=== PATIENT | female | born 1975 ===

== ENCOUNTER 2021-06-13 05:37 | Outpatient (REF) | payer OTHER, MEDICAID, SELFPAY ==
--- NOTE | ~2021-06-13 | XR_ITS ---
EXAMINATION: XR ANKLE, LEFT CLINICAL INFORMATION: Left ankle pain. COMPARISON: None TECHNIQUE: AP, lateral, and mortise views of the left ankle. FINDINGS: There is no fracture or dislocation. The ankle mortise is congruent. No ankle joint effusion. The soft tissues appear unremarkable. XR/XR ankle LT min 3V IMPRESSION: Normal left ankle.
== END 2021-06-13 05:38 | disposition home or self-care (01) ==
LOC: HO.HOSX 05:37
PROVIDERS: Visit Provider Physician Assistant
DX: S93.402A Sprain of unspecified ligament of left ankle, initial encounter (principal)
CPT/HCPCS: 73610; 99202

== ENCOUNTER → 2021-10-23 14:06 | Outpatient (BNVA) | payer OTHER, MEDICAID, SELFPAY | PROVIDERS: PCP Internal Medicine; Visit Provider Urology | DX: R39.15 Urgency of urination (principal) | CPT/HCPCS: 99202 ==

== ENCOUNTER → 2021-10-25 13:33 | Outpatient (BNVA) | payer OTHER, MEDICAID, SELFPAY | PROVIDERS: PCP Internal Medicine; Visit Provider Urology | DX: Z13.89 Encounter for screening for other disorder (principal) ==

== ENCOUNTER → 2022-01-14 13:11 | Outpatient (BNVA) | payer OTHER, MEDICAID, SELFPAY | PROVIDERS: PCP Internal Medicine; Referring Provider Internal Medicine; Visit Provider Internal Medicine | DX: R07.2 Precordial pain (principal) | CPT/HCPCS: 93005; 99202 ==

== ENCOUNTER → 2022-01-21 07:20 | Outpatient (REF) | payer OTHER, MEDICAID, SELFPAY ==
--- NOTE | ~2022-01-21 | NM_ITS ---
EXERCISE MYOCARDIAL PERFUSION STUDY INDICATION: Chest pain, assess for coronary disease and ischemia. TECHNIQUE: The patient was brought in for an exercise perfusion study on 01/21/2022. Patient performed exercise as per Damaso protocol and was injected 25 mCi of sestamibi once target heart rate was achieved. Images were obtained using the SPECT gamma camera interlaced with the gating device. Images were obtained in supine position. Resting perfusion study was performed on 01/22/2022. Patient was administered 25 mCi of sestamibi intravenously at rest. Images were then obtained in supine position. Total DLP 84mGy-cm. Images were processed with the software and compared side to side in short axis, horizontal long axis and vertical long axis views. FINDINGS: Raw images were reviewed. The stress perfusion study showed no significant perfusion defects. Both uncorrected as well as CT attenuation corrected images were reviewed. The gated study shows normal LV systolic function with calculated LVEF of 69%. LV cavity is normal in size. The gated study shows normal wall thickening and contraction of segments. Resting study shows no significant perfusion abnormality. Gating at rest reveals normal wall motion with ejection fraction at 69%. The findings are consistent with no definite reversible or fixed perfusion defects. NM/NM cardiolite stress test IMPRESSION: 1. Myocardial perfusion imaging study shows normal myocardial perfusion. 2. Gated LVEF is 69% during stress and rest. 3. Transient ischemic dilatation not present. EKG component of the test reported separately.
--- NOTE | 2022-01-21 07:25 | CA_ITS ---
Transthoracic Echocardiogram Patient (Last, First, Middle): Fe Haley, Gender: Female Date of : 1975 Age: 46 Procedure Date: 01/21/2022 Procedure Type: Transthoracic Echocardiogram Location: OP Height: 157.48 cm Weight: 58.97 kg BSA: 1.59 m2 Heart Rate: bpm BP: 130 / 82 mmHg Electric Spot Welder: JYOTI Referring MD: Trent Garza MD Symptoms: R07.2 - Precordial pain Study Quality: Adequate ECG Rhythm: Sinus Conclusions: - The left ventricular systolic function is normal. The calculated ejection fraction is 65% by biplane method. - There is mild tricuspid valve regurgitation. Findings Left Ventricle Normal left ventricular cavity size. There is normal left ventricular wall thickness. The left ventricular systolic function is normal. The calculated ejection fraction is 65% by biplane method. There is no evidence of regional wall motion abnormalities. Diastolic function is normal for age. Right Ventricle Normal right ventricular cavity size and systolic function. Atria Both atria are normal in size. Aortic Valve There is a normal trileaflet aortic valve. There is no aortic valve stenosis. There is no aortic valve regurgitation. Mitral Valve The mitral valve appears normal. There is trace mitral valve regurgitation. There is no mitral valve stenosis. Pulmonic Valve The pulmonic valve is likely normal. Tricuspid Valve Normal tricuspid valve structure. There is mild tricuspid valve regurgitation. There is no evidence of pulmonary hypertension. Great Vessels The asc aorta is normal in size. Venous The inferior vena cava is normal in size and collapses greater than 50% with inspiration. Pericardium/Pleural There is no evidence of pericardial effusion. Prior Study Comparison No prior study available for comparison. Measurements 2D Linear Measurements IVSd: 0.81 0.6-0.9/0.6-1.0 cm LVIDd: 4.49 3.9-5.3/4.2-5.9 cm LVIDd Index: 2.82 2.4-3.2/2.2-3.1 cm/m2 LVIDs: 2.90 2.0-3.6 cm LVPWd: 0.65 0.7-1.1 cm LA Diam: 2.80 2.7-3.8/3.0-4.0 cm LAIDs Index: 1.76 1.5-2.3 cm/m2 LV Mass: 125.15 67-162/88-224 g LV Mass Index: 78.71 43-95/49-115 g/m2 LVOT Diam: 1.90 3.0+(-)1.3 cm 2D Systolic Function EF 4C: 65.40 >55% EF 2C: 67.30 >55% EF BiP: 64.90 >55% Mitral Valve MV Pk E: 0.93 MV PK A: 0.78 MV Decel Time: 218.00 E/A: 1.20 E'Lateral: 13.20 E'Medial: 8.81 E/E' Med: 10.60 E/E' Lat: 7.10 PHT: 64.00 MVA PHT: 3.44 Decel Mingo: 4.28 Aortic Valve AoV Pk Roger: 1.32 AoV Mn Roger: 0.91 AoV VTI: 0.30 AoV Pk Grad: 7.00 Aov Mn Grad: 4.00 ISABEL Cont.VTI: 2.56 LVOT LVOT Pk Roger: 1.06 LVOT Mn Roger: 0.71 LVOT VTI: 0.27 LVOT Pk Grad: 4.00 LVOT Mn Grad: 2.00 LVOT Diam: 1.90 LVOT Area: 2.84 Diastolic Function MV Pk E: 0.93 MV Pk A: 0.78 E/A: 1.20 E'Medial: 8.81 E/E' Med: 10.60 E' Laterial: 13.20 E/E' Lat: 7.10 Right Ventricle TAPSE (mm): 23.00 TVS' Roger: 11.40 Tricuspid Valve TR Pk Roger: 2.48 TR Pk Grad: 25.00 RA Press: 3.00 RVSP: 28.00 Great Vessels Aorta Sinus of Valsalva: 2.73 2.0-3.[address] Ridge: 2.43 1.7-3.4 cm Ao Asc: 3.10 2.1-3.4 cm Updated in Other Vendor System with Status of Final Trent Garza MD electronically signed on 01/22/2022 10:03:30 AM with status of Final
--- NOTE | 2022-01-21 07:25 | CA_ITS ---
Acquisition Time: 2022-01-21 08:21:17 Total Exercise Time: 00:11:16 Test Indications: Chest Pain Medications: FENOFIBRATE DIVALPROX ROSUVASTATIN SERTRALINE ZOLPIDEM Protocol: TERRY Max HR: 155 BPM 89% of Pred: 173 BPM Max BP: 182/096 mmHG Max Work Load: 13.4 METS Exercise stress test with exercise 11 min 16 sec of Terry protocol, achieving 89% MPHR, with fatigue and mild sob with request to stop, no chest discomfort with exercise, with isolated PAC and PVCs, with normotensive response to exercise, with baseline EKG showing borderline ST depression inferiorly and V4-V6, then with exercise and recovery there is at least [address] depression leads III, aVF, V4-V6 suggestive of ischemia which gradually improves in later recovery. Once seated in chair, post exercise she reports lightheadedness and 3/10 mid chest pressure, like someone is sitting there , which resolves with 6 minutes of rest. Nuclear images pending. Test reviewed with Dr Garza. Referred By: Trent Garza Overread By: LELAND VERDE
== END ==
LOC: HO.CARD 07:20
PROVIDERS: PCP Internal Medicine; Visit Provider Internal Medicine
DX: R07.2 Precordial pain (principal); Z79.899 Other long term (current) drug therapy
CPT/HCPCS: 78452; 93017; 93306; A9500

== ENCOUNTER 2022-03-06 12:34 | Outpatient (REF) | payer OTHER, MEDICAID, SELFPAY ==
--- NOTE | ~2022-03-06 | MM_ITS ---
EXAMINATION: MM SCREENING DIGITAL BREAST TOMOSYNTHESIS, BILATERAL CLINICAL INFORMATION: Screening. Asymptomatic. Prior history reduction mammoplasty, 2017. COMPARISON: Mammography: 01/06/2020, 03/15/2019, 02/01/2018 TECHNIQUE: Digital breast tomosynthesis is performed in both the craniocaudal and mediolateral oblique views along with computer-aided detection (CAD). Synthesized 2D images are generated from the tomosynthesis. FINDINGS: The breasts are almost entirely fatty (ACR BI-RADS breast composition Category a). There are no significant masses, abnormal calcifications, or other abnormalities. Parenchymal pattern is similar to prior studies. Background stromal markings are stable. Incidental new benign rim calcification present left anterior 6:30 position. There is no developing density or architectural abnormality. The axilla and skin contours are unremarkable. No significant changes. MM/MM tomosynthesis screening BI IMPRESSION: No mammographic evidence of malignancy. ASSESSMENT: BI-RADS 2: Benign RECOMMENDATION: Routine annual mammography screening. This patient's information was entered into a reminder system with a target due date for their next mammogram.
== END 2022-03-06 12:35 | disposition home or self-care (01) ==
LOC: HO.MAMMO 12:34
PROVIDERS: PCP Internal Medicine; Visit Provider Internal Medicine
DX: Z12.31 Encounter for screening mammogram for malignant neoplasm of breast (principal); R07.2 Precordial pain; R94.39 Abnormal result of other cardiovascular function study
CPT/HCPCS: 77063; 77067; 99212

== ENCOUNTER 2022-05-13 09:16 | Outpatient (REF) | payer OTHER, MEDICAID, SELFPAY ==
[2022-05-13 11:04] LABS: Anion Gap 15 (12-20); Blood Urea Nitrogen 21 mg/dL (9-16); Calcium 9.8 mg/dL (8.4-10.2); Carbon Dioxide 26 mmol/L (22-29); Chloride 102 mmol/L (96-108); Estimated Glomerular Filt Rate 57; Glucose Random 86 mg/dL (60-115); Potassium 4.3 mmol/L (3.3-5.1); Sodium 139 mmol/L (135-145)
== END 2022-05-13 09:17 | disposition home or self-care (01) ==
LOC: HO.LAB 09:16
PROVIDERS: PCP Nurse Practitioner Family; Visit Provider Nurse Practitioner Family
DX: R94.39 Abnormal result of other cardiovascular function study (principal)
CPT/HCPCS: 36415; 80048

== ENCOUNTER → 2022-07-04 09:16 | Outpatient (BNVA) | payer OTHER, MEDICAID, SELFPAY | PROVIDERS: PCP Internal Medicine; Visit Provider Urology | DX: Z13.89 Encounter for screening for other disorder (principal) ==

== ENCOUNTER 2022-08-18 08:01 | Day surgery (SDC) | payer OTHER, MEDICAID, SELFPAY ==
[2022-08-13 11:29] VITALS: BMI 24.5
--- NOTE | ~2022-08-18 | FL_ITS ---
EXAMINATION: XR FLUOROSCOPY WITH IMAGES CLINICAL INFORMATION: Interstim COMPARISON: KUB 01/31/2020 TECHNIQUE: Fluoroscopy Supervised By: Dr. Oli Cook. Fluoroscopy Time: 1.4 minutes. Cumulative Dose: 30.26 mGy. Images: 4. FINDINGS: The interstim electrode overlies the right sacrum with electrode tip in the posterior pelvis. There is a generator overlying the right lateral buttocks. The lead shows no kinking or defect. FL/FL guidance in OR IMPRESSION: Fluoroscopy for urologic procedure.
--- NOTE | 2022-08-18 07:35 | HO.ANESPROP2 ---
Documented by User: Nanda Thompson MD 08/18/22 07:41 [facility] Active Problems Active Problems: All Active Problems (Updated 08/13/22 @ 11:21 by Leigh Coates RN) Left ankle sprain (Acute) Urinary urgency (Acute) Precordial chest pain (Acute) Abnormal stress electrocardiogram test using treadmill (Acute) Past Medical History Medical History Depression Elevated cholesterol Uterine cancer Functional capacity: independent ambulation Patient : No Family History Family History Father Heart disease Mother Heart disease Surgical History Surgical History H/O wrist surgery History of History of esophagogastroduodenoscopy (EGD) History of hysterectomy History of pubovaginal sling History of surgery Hx of abdominoplasty Hx of breast reduction, elective Hx of cystoscopy Hx of right breast biopsy Status post left foot surgery Social History Social History Patient Tobacco Use Status: Never used Tobacco Use of substances other than those prescribed or required for medical reasons: No Are you DNR?: No Advance Directives: No Advance Directives Information Provided: Yes Patient : No Current occupational status: unemployed and other Current occupation: rt handed/homemaker Meds Allergies Allergy/AdvReac Type Severity Reaction Status Date / Time venlafaxine [From EFFEXOR] Allergy Severe SUICIDAL Verified 08/18/22 08:09 THOUGHTS Penicillins [PENICILLINS] Allergy Intermediate RASH Verified 08/18/22 08:09 Home Medications Medication Instructions Recorded Confirmed Last Taken Type divalproex 500 mg tablet,delayed 500 mg PO BID 01/14/22 08/13/22 Unknown History release fenofibrate 160 mg tablet 160 mg PO DAILY 01/14/22 08/13/22 Unknown History rosuvastatin 40 mg tablet 40 mg PO DAILY 01/14/22 08/13/22 Unknown History sertraline 100 mg tablet 100 mg PO DAILY 01/14/22 08/13/22 Unknown History zolpidem 10 mg tablet 10 mg PO BEDTIME PRN Insomnia 01/14/22 08/13/22 Unknown History loratadine 10 mg tablet 10 mg PO DAILY 08/13/22 08/13/22 Unknown History Exam Exam Date and Time: August 18, 2022 0735 Height,Weight and Vital Signs: Height 5 ft 2 in Weight 60.781 kg Documented by User: Riya Pierce MD 08/18/22 09:30 [facility] Past Medical History Medical History Depression Elevated cholesterol Uterine cancer Family History Family History Father Heart disease Mother Heart disease Family history of problems with anesthesia: No Surgical History Surgical History H/O wrist surgery History of History of esophagogastroduodenoscopy (EGD) History of hysterectomy History of pubovaginal sling History of surgery Hx of abdominoplasty Hx of breast reduction, elective Hx of cystoscopy Hx of right breast biopsy Status post left foot surgery History of Problems with Anesthesia: No Social History Social History Patient Tobacco Use Status: Never used Tobacco Use of substances other than those prescribed or required for medical reasons: No Are you DNR?: No Advance Directives: No Advance Directives Information Provided: Yes Patient : No Current occupational status: unemployed and other Current occupation: rt handed/homemaker Meds Allergies Allergy/AdvReac Type Severity Reaction Status Date / Time venlafaxine [From EFFEXOR] Allergy Severe SUICIDAL Verified 08/18/22 08:09 THOUGHTS Penicillins [PENICILLINS] Allergy Intermediate RASH Verified 08/18/22 08:09 Home Medications Medication Instructions Recorded Confirmed Last Taken Type divalproex 500 mg tablet,delayed 500 mg PO BID 01/14/22 08/13/22 Unknown History release fenofibrate 160 mg tablet 160 mg PO DAILY 01/14/22 08/13/22 Unknown History rosuvastatin 40 mg tablet 40 mg PO DAILY 01/14/22 08/13/22 Unknown History sertraline 100 mg tablet 100 mg PO DAILY 01/14/22 08/13/22 Unknown History zolpidem 10 mg tablet 10 mg PO BEDTIME PRN Insomnia 01/14/22 08/13/22 Unknown History loratadine 10 mg tablet 10 mg PO DAILY 08/13/22 08/13/22 Unknown History Exam Airway Mallampati Class: II TM Dist: >3cm Neck ROM: Full Heart: rrr Lungs: cta Assessment and Plan Assessment Anesthesia Assessment: Anesthesia Plan Discussed and Chart Reviewed Final Anesthetic Review Family History of Problems with Anesthesia: No History of Problems with Anesthesia: No NPO: Yes ASA Class: II Final Preanesthetic Review: No Changes in Pt Med Stat, Meds/Allgs Chart Reviewed, Consent Obtained/Reviewed and Anes Risks/Benef Reviewed Patient Risk: Low Procedure Risk: Low Anesthetic Plan Anesthetic Plan: MAC: Disposition: Standard PACU
[2022-08-18 08:31] VITALS: BP 151/99; PULSE 75; RESP 16; TEMP 35.9; O2SAT 99
[2022-08-18] MEDS: Lactated Ringers 1,000 ML 50 ML IVCONT (08:45)
--- NOTE | 2022-08-18 09:15 | MHC.SHP ---
Pre-Procedural Eval Section A Date of Service: 08/18/22 The patient is an INPATIENT: No Changes since office visit: No Cold of Flu in the past 2 weeks, No New Medical Problems, No Changes in Medication and No Patient answered all questions The History & Physical has been completed within 30 days and I have reviewed it.: Yes Section B Chief Complaint: Urgency of urination Allergies: Allergies Allergy/AdvReac Type Severity Reaction Status Date / Time venlafaxine [From EFFEXOR] Allergy Severe SUICIDAL Verified 08/18/22 08:09 THOUGHTS Penicillins [PENICILLINS] Allergy Intermediate RASH Verified 08/18/22 08:09 Review of Systems Sugical H&P ROS: Negative: Constitution, Cardiovascular, Respiratory, Neurological, Psychiatric, Hem-Onc, Allergic/Immunologic, Gastrointestinal, Genitourinary, Musculoskeletal, Integumentary, Endocrine and Eyes/Ears/Nose/Throat Exam Surgical H&P Exam: Normal: HEENT, Normal: Heart, Normal: Lungs, Normal: Extremities, Normal: Abdomen, Normal: Skin and Normal: Neurological Plan Diagnosis/Plan: Unchanged ( InterStim lead removal and generator change) I have reviewed the history and physical and performed a pertinent physical examination on my patient. No changes have occurred unless specified. Time Spent With Patient Time: Total time managing care of this patient today ____ minutes.
--- NOTE | 2022-08-18 10:50 | P.CONAN_ITS ---
[facility] Active Problems Active Problems: All Active Problems (Updated 08/18/22 @ 08:08 by Susanne Kiran RN) Left ankle sprain (Acute) Urinary urgency (Acute) Precordial chest pain (Acute) Abnormal stress electrocardiogram test using treadmill (Acute) Past Medical History Medical History Depression Elevated cholesterol Uterine cancer Functional capacity: independent ambulation Patient : No Family History Family History Father Heart disease Mother Heart disease Family history of problems with anesthesia: No Surgical History Surgical History H/O wrist surgery History of History of esophagogastroduodenoscopy (EGD) History of hysterectomy History of pubovaginal sling History of surgery Hx of abdominoplasty Hx of breast reduction, elective Hx of cystoscopy Hx of right breast biopsy Status post left foot surgery History of Problems with Anesthesia: No Social History Social History Patient Tobacco Use Status: Never used Tobacco Use of substances other than those prescribed or required for medical reasons: No Are you DNR?: No Advance Directives: No Advance Directives Information Provided: Yes Patient : No Current occupational status: unemployed and other Current occupation: rt handed/homemaker Meds Allergies Allergy/AdvReac Type Severity Reaction Status Date / Time venlafaxine [From EFFEXOR] Allergy Severe SUICIDAL Verified 08/18/22 08:09 THOUGHTS Penicillins [PENICILLINS] Allergy Intermediate RASH Verified 08/18/22 08:09 Active Medications: Current Medications Fentanyl (Fentanyl Citrate/Pf 100 Mcg/2 Ml Vial) 25 mcg IVPUSH Q5M PRN; Protocol PRN Reason: Pain, Moderate (Pain Scale 4-6 Lactated Ringer's (Lr) 1,000 mls @ 50 mls/hr IVCONT .Q20H MAUREEN Last Admin: 08/18/22 08:45 Dose: 50 mls/hr Ondansetron HCl (Ondansetron Hcl 4 Mg/2 Ml Vial) 4 mg IVPUSH ONCE PRN PRN Reason: Nausea and Vomiting Oxycodone HCl (Oxycodone Hcl Immed Release 5 Mg Tablet) 5 mg PO ONCE PRN PRN Reason: Pain, Severe (Pain Scale 7-10) Home Medications Medication Instructions Recorded Confirmed Last Taken Type divalproex 500 mg tablet,delayed 500 mg PO BID 01/14/22 08/13/22 Unknown History release fenofibrate 160 mg tablet 160 mg PO DAILY 01/14/22 08/13/22 Unknown History rosuvastatin 40 mg tablet 40 mg PO DAILY 01/14/22 08/13/22 Unknown History sertraline 100 mg tablet 100 mg PO DAILY 01/14/22 08/13/22 Unknown History zolpidem 10 mg tablet 10 mg PO BEDTIME PRN Insomnia 01/14/22 08/13/22 Unknown History loratadine 10 mg tablet 10 mg PO DAILY 08/13/22 08/13/22 Unknown History Exam Exam Date and Time: August 18, 2022 1050 Height,Weight and Vital Signs: Height 5 ft 2 in Weight 60.781 kg Last Vital Signs Temp 96.6 F L 08/18/22 08:31 Pulse 75 08/18/22 08:31 Resp 16 08/18/22 08:31 BP 151/99 H 08/18/22 08:31 Pulse Ox 99 08/18/22 08:31 O2 Del Method 08/18/22 08:31 Airway Mallampati Class: II TM Dist: >3cm Neck ROM: Full Heart: RRR Lungs: CTA Assessment and Plan Final Anesthetic Review Family History of Problems with Anesthesia: No History of Problems with Anesthesia: No ASA Class: II Final Preanesthetic Review: Meds/Allgs Chart Reviewed, Consent Obtained/Reviewed and Anes Risks/Benef Reviewed Patient Risk: Low Procedure Risk: Low Anesthetic Plan Anesthetic Plan: MAC: Disposition: Standard PACU
--- NOTE | 2022-08-18 11:03 | P.OP_ITS ---
Operative Note Operative Note Date of Service: 08/18/22 Narrative: PreOperative Diagnosis: Overactive bladder with urinary urgency and frequency Post Operative Diagnosis: Overactive bladder with urinary urgency and frequency Procedure: 1.) Removal of InterStim lead 2.) Removal of InterStim battery 3.) Placement of InterStim lead 4.) Placement of InterStim battery Surgeon: Dr Oli Cook Anesthesia: sedation Indications for procedure: 2017 implant placement for management of overactive bladder and interstitial cystitis. Good effect. Procedure: After informed consent was verified the patient was brought to the operating room. Sedation anesthesia was administered per protocol. The patient was placed in a prone position and prepped and draped in a sterile fashion. Safety pause time-out was performed. Local anesthetic was infiltrated around the initial battery pocket incision on the right lateral superior buttock. Incision was made and taken down till the battery was encountered. The battery pocket was opened and a battery brought out to the skin. Using the C-arm and a snap the lead entering S3 on the right side was targeted. Local anesthetic was infiltrated around the prior incision and incision made through the skin. Using blunt dissection the original lead was isolated and brought up through our skin incision. This was get disconnected from the battery to give us the full lead in the sacral position. The lead was dissected down until we could palpate the transition to the thickened plastic. Using a right angle clamp we were able to fully withdrawal the old lead from its position in the S3 foramen. Using the C-arm in an AP and lateral view the finding needle was introduced into the S3 foramen running from a caudad to chordal direction. Using the supervisor paper testing we could confirm good toe movement and Ashkan response. The internal introducer from the needle was removed and the control lead placed. The find needle was removed and the dilator sheath introduced. Under fluoroscopic guidance the dilator sheath was advanced till the marker was seen mid point through the sacral bone on the lateral image. The internal cannula from the dilator was removed. The guidewire was removed. The active lead was then introduced through the dilator sheath and advanced so that the 3rd and 4th marked electrodes crossed the internal boundary line of the sacrum. The testing electrode was then hooked up to each of the wire electrodes 0 through 3 and good Ashkan and toe response is was seen at low a mplitude 2.0 amps. This confirmed the clinically relevant position of the live wire. Under live fluoroscopy the introducer sheath was removed deploying the tines of the wire ensuring that the live wire remained in the previously described position. The tunneling device was then used to bridge the distance between the sacral vertical incision and the desired location of the battery pocket. The live wire was placed through the tunneling device and brought out into the battery pocket. The sacral incision was washed with water. A new battery was connected to the live wire and placed into the subcutaneous pocket. The battery was tested and had positive miner pick and displayed normal impedance on all 4 channels. The battery pocket had been washed with sterile water prior to placement of the battery. Interrupted 3-0 Vicryl sutures were used to close the defect spaces and bring skin edges together. Running 4-0 Monocryl sutures were used to appose skin edges. Incisions were dressed using skin glue followed by Tegaderm dressing. Patient tolerated procedure well was extubated in operating room transferred in stable condition to the recovery area. CPT full device replacement 35560, [id number], [id number]
[2022-08-18 11:10] VITALS: BP 150/88; PULSE 81; RESP 17; TEMP 36.7; O2SAT 100
[2022-08-18 11:25] VITALS: BP 154/91; PULSE 70; RESP 18; TEMP 36.7; O2SAT 100
--- NOTE | 2022-08-18 11:51 | HO.POSTANES ---
Post Anesthesia Evaluation Post Anesthesia Evaluation Vital Signs: Vital Signs Temp Pulse Resp BP Pulse Ox O2 Del Method 08/18/22 11:25 98.0 F 70 18 154/91 H 100 Room Air 08/18/22 11:10 98.0 F 81 17 150/88 H 100 Room Air 08/18/22 08:31 96.6 F L 75 16 151/99 H 99 Room Air Anesthesia: Monitored Mental Status: Awake Pain Control: Satisfactory Nausea/Vomiting: None Hydration: Adequate
== END 2022-08-18 11:50 | disposition home or self-care (01) ==
PROVIDERS: PCP Internal Medicine; Visit Provider Urology
PROC: (CPT 63685; principal; 2022-08-18 09:50)
DX: N32.81 Overactive bladder (principal); R39.15 Urgency of urination; R35.0 Frequency of micturition; Z79.899 Other long term (current) drug therapy; Z88.0 Allergy status to penicillin; Z88.8 Allergy status to other drugs, medicaments and biological substances; Z85.3 Personal history of malignant neoplasm of breast; Z90.710 Acquired absence of both cervix and uterus
CPT/HCPCS: 64590; 64561; C1767; C1778; C1787; J0131; J0330; J0690; J1100; J1885; J2250; J2405; J2795; J3010; J3370

== ENCOUNTER 2023-01-22 10:11 | Outpatient (REF) | payer OTHER, MEDICAID, SELFPAY ==
[2023-01-22 10:42] LABS: MANUAL DIFF FLAG NO
[2023-01-22 10:53] LABS: Basophils Absolute Auto 0.1 X10*3/uL (0.0-0.2); Basophils Percent Auto 0.6 % (0-2); Eosinophils Absolute Auto 0.1 X10*3/uL (0.0-0.4); Eosinophils Percent Auto 1.3 % (0-4); Hematocrit 45.1 % (37.0-47.0); Hemoglobin 15.6 g/dl (12.0-16.0); Imm Gran Abs Auto 0.04 X10*3/uL (0.00-0.03); Imm Gran Pct Auto 0.4 % (0.0-0.4); Lymphocytes Absolute Auto 2.8 X10*3/uL (1.2-4.9); Lymphocytes Percent Auto 31.1 % (20-40); Mean Corpuscular HGB Conc 34.6 g/dl (31.0-35.0); Mean Corpuscular Hemoglobin 29.3 pg (27.0-33.0); Mean Corpuscular Volume 84.6 fL (80.0-98.0); Mean Platelet Volume 9.5 fL (9.4-12.3); Monocytes Absolute Auto 0.5 X10*3/uL (0.1-1.2); Monocytes Percent Auto 5.3 % (2-11); Neutrophils Absolute Auto 5.5 x10*3/uL (2.0-8.3); Neutrophils Percent Auto 61.3 % (45-73); Platelet Count 230 X10*3/uL (160-400); Red Blood Count 5.33 X10*6/uL (4.20-5.50); Red Cell Distribution Width 13.3 % (11.0-16.0); White Blood Count 8.9 X10*3/uL (4.8-10.8)
[2023-01-22 11:15] LABS: Alanine Aminotransferase 12 U/L (0-31); Albumin Level 4.4 g/dL (3.5-5.0); Alkaline Phosphatase 129 U/L (39-117); Anion Gap 12 (12-20); Aspartate Amino Transferase 14 U/L (5-31); Bilirubin Total 0.6 mg/dL (0.0-1.0); Blood Urea Nitrogen 12 mg/dL (9-16); Calcium 9.8 mg/dL (8.4-10.2); Carbon Dioxide 26 mmol/L (22-29); Chloride 107 mmol/L (96-108); Cholesterol 266 mg/dL; Estimated Glomerular Filt Rate > 60; Glucose Random 93 mg/dL (60-115); HDL Cholesterol 37 mg/dL; LDL Cholesterol Calculated 181 mg/dl; Sodium 141 mmol/L (135-145); Total Protein 7.2 g/dL (6.5-8.0); Triglycerides 244 mg/dL
== END 2023-01-22 10:12 | disposition home or self-care (01) ==
LOC: HO.10HDL 10:11
PROVIDERS: Visit Provider Internal Medicine
DX: M65.322 Trigger finger, left index finger (principal); R07.2 Precordial pain; E78.00 Pure hypercholesterolemia, unspecified; I10 Essential (primary) hypertension; R94.39 Abnormal result of other cardiovascular function study
CPT/HCPCS: 20550; 36415; 80053; 80061; 85025; 93005; 99202; 99212

== ENCOUNTER 2023-01-22 10:21 | Outpatient (AMB) | payer OTHER, MEDICAID, SELFPAY ==
--- NOTE | 2023-01-22 10:33 | MHC.OFFVIS ---
Intake Vital Signs 01/22/23 10:37 Height 5 ft 2 in Weight 123 lb 10.869 oz BMI 22.6 BP 114/62 Blood Pressure Location Rt brachial Position Sitting Pulse 66 Pulse Source Pulse Oximeter Temp 97.5 F Temp Source Skin Pulse Oximetry (%) 100 Intake Visit Reasons: Hand Pain Intake Note: New pt presents today for hand pain consult. 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 In the past she would follow-up regularly with Dr. Russell. She would get right shoulder injections every 6 months or so. Today however she is here for pain in her left index finger. She has difficulty flexing her left index finger. She mentioned that she had a similar condition more than 8 months ago associated with triggering of the left index. She had a steroid injection by Dr. Day with good relief of her symptoms. [facility] Medical History Depression Elevated cholesterol Uterine cancer Surgical History H/O wrist surgery History of History of esophagogastroduodenoscopy (EGD) History of hysterectomy History of pubovaginal sling History of surgery Hx of abdominoplasty Hx of breast reduction, elective Hx of cystoscopy Hx of right breast biopsy Status post left foot surgery Family History Father Heart disease Mother Heart disease Social History Household Members: Children Alcohol intake: current Alcohol intake frequency: does not drink Patient Tobacco Use Status: Never used Tobacco Current occupational status: unemployed and other Current occupation: rt handed/homemaker Female Reproductive History Menstrual Total pregnancies: 5 Number of Living Children: 5 Review of Systems Musc Reports arthralgias Physical Exam Vital Signs: Last Vital Signs Temp 97.5 F 01/22/23 10:37 Pulse 66 01/22/23 10:37 BP 114/62 01/22/23 10:37 Pulse Ox 100 01/22/23 10:37 BMI result Body Mass Index 22.6 Const General: cooperative, healthy appearing and comfortable Nutritional Appearance: average body habitus Orientation/consciousness: patient oriented x3 Limitations: no limitations HEENT Head: Yes normocephalic and Yes atraumatic Resp Effort & Inspection: normal respiratory effort and able to speak in complete sentences Neuro General: patient oriented x3 Extrem Other: Mild osteoarthritic changes of both hands without active synovitis Left 2nd MCP tenderness at the palmar side. Mild nodular thickening of her left 2nd flexor tendon. Reduced left index flexion Office Procedures Joint Injection/Drain Joint Injection/Drain Primary Site: left trigger finger (index) Injected: 20 mg of, Kenalog and other (0.2 mL of 1% lidocaine) Procedure: The patient tolerated the procedure well Coding Details: The palm of the left hand was prepped with ChloraPrep and alcohol. Under topical ethyl chloride spray the [2nd] flexor tendon sheath was injected with 20 mg of triamcinolone and 0.2 cc of 1% lidocaine. The patient tolerated the procedure without any acute complications. Additional procedure code (CPT) needed Assessment & Plan Assessment & Plan (1) Trigger finger, left index finger: Code(s): M65.322 - Trigger finger, left index finger Plan: 47-year-old female with a past medical history of osteoarthritis presents as a new patient. She used to follow-up regularly with Dr. Duffy but the practice clothes. She would get shoulder injections every 6 months or so. Today her main complaint is left index finger pain. Consistent with tendinitis. She had history of triggering of that finger associated with pain more than 9 months ago, she received a steroid injection back then which gave good results. With patient's consent the left index flexor tendon sheath was injected with Kenalog today. Follow-up in 2 months. Advised patient that if she does not get any relief in the next 3-4 weeks, she can call the office and we can refer her to Hand surgery for further evaluation Orders: Orders AMB Joint Injection/Aspiration Today M65.322 - Trigger finger, left index finger Coding Level of Care Code New Pt Level 3 (46902) Diagnoses Trigger finger, left index finger M65.322
[2023-01-22 10:37] VITALS: BP 114/62; PULSE 66; TEMP 36.4; O2SAT 100; BMI 22.6
== END 2023-01-22 11:08 | disposition home or self-care (01) ==
PROVIDERS: PCP Internal Medicine; Visit Provider Student in an Organized Health Care Education/Training Program
DX: M65.322 Trigger finger, left index finger (principal)
CPT/HCPCS: 99203

== ENCOUNTER 2023-01-22 14:40 | Outpatient (AMB) | payer OTHER, MEDICAID, SELFPAY ==
[2023-01-22 15:20] VITALS: BP 114/62; PULSE 69; BMI 23.0
--- NOTE | 2023-01-22 15:20 | A.OFFVIS_ITS ---
Intake Vital Signs 01/22/23 15:20 Height 5 ft 2 in Weight 125 lb 10.616 oz BMI 23.0 BP 114/62 Pulse 69 Intake Visit Reasons: PT Requested SOB Intake Note: pt requested s/b Eyeglass Cutter Required: No Allergies venlafaxine [From EFFEXOR] Allergy (Severe, Verified 01/22/23 15:32) SUICIDAL THOUGHTS Penicillins [PENICILLINS] Allergy (Intermediate, Verified 01/22/23 15:32) RASH Medication List - Last Reconciled 01/22/23 by More Mcguire NP-C divalproex 500 mg PO BID fenofibrate 160 mg PO DAILY rosuvastatin 40 mg PO DAILY sertraline 100 mg PO DAILY zolpidem 10 mg PO BEDTIME PRN HPI PT Requested SOB HPI Details Fe is a 47-year-old female with past medical history of hyperlipidemia, exertional chest discomfort with abnormal exercise stress test who presents for follow-up. On last visit a CTA of the coronary arteries was ordered however not completed by her for unclear reason. Today she reports that she continues to get exertional chest discomfort. She describes it as a pressure across her chest that occurs when she does activities that raises her heart rate. She has had to cut back on her activity level be cause of this. Her symptoms will improve and resolve with rest. She notices shortness of breath along with the pressure. No chest discomfort at rest. She has been getting her symptom daily. No palpitations, dizziness, presyncope, syncope, falls. No PND, orthopnea or edema. She is interested now in pursuing cardiac evaluation. [facility] Medical History Depression Elevated cholesterol Uterine cancer Surgical History H/O wrist surgery History of History of esophagogastroduodenoscopy (EGD) History of hysterectomy History of pubovaginal sling History of surgery Hx of abdominoplasty Hx of breast reduction, elective Hx of cystoscopy Hx of right breast biopsy Status post left foot surgery Family History Father Heart disease Mother Heart disease Social History Household Members: Children Alcohol intake: current Alcohol intake frequency: does not drink Patient Tobacco Use Status: Never used Tobacco Current occupational status: unemployed and other Current occupation: rt handed/homemaker Review of Systems Const All systems reviewed & are unremarkable except as noted in HPI and below ENT Denies dizziness Card Reports chest pain, Denies chest pain at rest, Reports chest pain with activity, Denies rapid heart rate, Denies pedal edema, Denies edema, Denies leg edema, Denies lightheadedness, Denies palpitations, Denies dyspnea, Reports dyspnea on exertion and Denies orthopnea Resp Denies cough, Denies dyspnea and Reports dyspnea on exertion GI Denies hematochezia and Denies change in stool character Musc Denies abnormal gait, Reports limited range of motion, Reports muscle cramps, Denies muscle weakness, Denies numbness, Denies radiating pain into limb, Denies stiffness and Denies tingling Neuro Denies abnormal gait, Denies dizziness, Denies numbness and Denies tingling Endo Denies palpitations Physical Exam Vital Signs: Last Vital Signs Pulse 69 01/22/23 15:20 BP 114/62 01/22/23 15:20 BMI result Body Mass Index 23.0 Const General: cooperative, healthy appearing, comfortable and no acute distress Orientation/consciousness: patient oriented x3 Neck Neck: Yes normal visual inspection Resp Effort & Inspection: normal respiratory effort Auscultation: clear to auscultation bilaterally, no crackles, no rales, no rhonchi and no wheezes Cardio Jugular venous distension: no JVD Rate: regular rate Rhythm: regular rhythm Heart sounds: S1 normal heart sound present, S2 normal heart sound present, no murmurs and no rubs Neuro General: patient oriented x3 Extrem General: Yes normal to inspection Psych Appearance: grossly normal Mental Status: mental status grossly normal Speech and movement: Normal speech and movement present Office Procedures EKG Details: Today, read by me, sinus rhythm with nonspecific T-wave abnormality, rate 69, QTC 426 milliseconds [id number], Complete Assessment & Plan Assessment & Plan (1) Precordial chest pain: Code(s): R07.2 - Precordial pain Plan: Patient reports anterior chest pressure like someone sitting on her with physical activity such as walking and cleaning her house over the last several months. She has had to cut back on her physical activity because of this symptom. She has undergone previous evaluation as her symptom does sound typical for angina. She has cardiac risks of hyperlipidemia and family history of early CAD. A echocardiogram was done on 01/21/2022 showing EF 65%, mild TR, no regional wall motion abnormality. An exercise nuclear stress test done on 01/21/2022 showed good exercise capacity, mild shortness of breath with exercise, 3/10 chest pressure in recovery with EKG changes suggestive of ischemia and normal myocardial perfusion imaging. At this time she continues to report symptoms that are suggestive of angina which has been unchanged in the last several months. EKG today shows sinus rhythm with nonspecific ST and T-wave abnormality, rate 69. Will reorder the coronary CTA of the coronary arteries. Recommended she start daily aspirin if no contraindications. Will continue on high-dose rosuvastatin. Signs and symptoms of angina reviewed with her. Emergency care if needed for symptoms. Cardiology follow-up when test result is available. (2) Abnormal stress electrocardiogram test using treadmill: Code(s): R94.39 - Abnormal result of other cardiovascular function study Orders: Orders CT Cardiac Coronary Angio 01/22/23 R07.2 - Precordial pain, R94.39 - Abnormal result of other cardiovascular function study Basic Metabolic Panel 01/22/23 R07.2 - Precordial pain Coding Level of Care Code Est Pt Level 3 (57256) Diagnoses Precordial chest pain R07.2 Abnormal stress electrocardiogram test using treadmill R94.39 CPT Codes EKG - CPT: 55090-[id number], Complete ([id number]) Time Spent (min) 24 Comment Chart review, documentation, interview, assess
== END 2023-01-22 15:49 | disposition home or self-care (01) ==
PROVIDERS: PCP Internal Medicine; Referring Provider Internal Medicine; Visit Provider Nurse Practitioner Family
DX: R94.31 Abnormal electrocardiogram [ECG] [EKG] (principal)
CPT/HCPCS: 93010; 99213

== ENCOUNTER 2023-03-17 13:54 | Outpatient (AMB) | payer OTHER, MEDICAID, SELFPAY ==
[2023-03-17 14:06] VITALS: BP 114/64; PULSE 69; BMI 22.5
--- NOTE | 2023-03-17 14:06 | MHC.OFFVIS ---
Intake Vital Signs 03/17/23 14:06 Height 5 ft 2 in Weight 123 lb 0.287 oz BMI 22.5 BP 114/64 Blood Pressure Location Lt brachial Position Sitting Pulse 69 Pulse Source Pulse Oximeter Intake Visit Reasons: Results Intake Note: f/u after CTA Telephone Information Clerk Required: No Allergies venlafaxine [From EFFEXOR] Allergy (Severe, Verified 03/17/23 14:11) SUICIDAL THOUGHTS Penicillins [PENICILLINS] Allergy (Intermediate, Verified 03/17/23 14:11) RASH Medication List - Last Reconciled 03/17/23 by More Mcguire, HILARY-C divalproex 500 mg PO BID fenofibrate 160 mg PO DAILY rosuvastatin 40 mg PO DAILY sertraline 100 mg PO DAILY zolpidem 10 mg PO BEDTIME PRN HPI Results HPI Details Fe is a 47-year-old female with past medical history of hyperlipidemia, exertional chest discomfort with abnormal exercise stress test who recently had a CTA of the coronary arteries and now presents for follow-up. Today she continues to report a pressure across her chest with shortness of breath during physical activity. Symptoms do resolve with rest. No change in symptoms since her last visit in January. Denies palpitations, presyncope, syncope, PND, orthopnea or edema. Friend is present. PFSH Medical History Uterine cancer Elevated cholesterol Depression Surgical History H/O wrist surgery History of esophagogastroduodenoscopy (EGD) Hx of cystoscopy History of pubovaginal sling Hx of abdominoplasty History of surgery Hx of right breast biopsy Hx of breast reduction, elective Status post left foot surgery History of hysterectomy History of Family History Father Heart disease Mother Heart disease Social History Household Members: Children Alcohol intake: current Alcohol intake frequency: does not drink Patient Tobacco Use Status: Never used Tobacco Current occupational status: unemployed and other Current occupation: rt handed/homemaker Review of Systems Const All systems reviewed & are unremarkable except as noted in HPI and below ENT Denies dizziness Card Reports chest pain (pressure), Denies chest pain at rest, Reports chest pain with activity, Denies rapid heart rate, Denies pedal edema, Denies edema, Denies leg edema, Denies lightheadedness, Denies palpitations, Denies dyspnea, Denies dyspnea on exertion and Denies orthopnea Resp Denies cough, Denies dyspnea and Denies dyspnea on exertion GI Denies hematochezia and Denies change in stool character Musc Denies abnormal gait, Reports limited range of motion, Reports muscle cramps, Denies muscle weakness, Denies numbness, Denies radiating pain into limb, Denies stiffness and Denies tingling Neuro Denies abnormal gait, Denies dizziness, Denies numbness and Denies tingling Endo Denies palpitations Physical Exam Vital Signs: Last Vital Signs Pulse 69 03/17/23 14:06 BP 114/64 03/17/23 14:06 BMI result Body Mass Index 22.5 Const General: cooperative, healthy appearing, comfortable and no acute distress Orientation/consciousness: patient oriented x3 Neck Neck: Yes normal visual inspection Resp Effort & Inspection: normal respiratory effort Auscultation: clear to auscultation bilaterally, no crackles, no rales, no rhonchi and no wheezes Cardio Jugular venous distension: no JVD Rate: regular rate Rhythm: regular rhythm Heart sounds: S1 normal heart sound present, S2 normal heart sound present, no murmurs and no rubs Neuro General: patient oriented x3 Extrem General: Yes normal to inspection Psych Appearance: grossly normal Mental Status: mental status grossly normal Speech and movement: Normal speech and movement present Assessment & Plan Assessment & Plan (1) Precordial chest pain: Code(s): R07.2 - Precordial pain Plan: Patient reports shortness of breath and anterior chest pressure like someone sitting on her with physical activity such as walking and cleaning her house over the last several months. She has had to cut back on her physical activity because of this symptom. She has cardiac risks of hyperlipidemia and family history of early CAD. A echocardiogram was done on 01/21/2022 showing EF 65%, mild TR, no regional wall motion abnormality. An exercise nuclear stress test done on 01/21/2022 showed good exercise capacity, mild shortness of breath with exercise, 3/10 chest pressure in recovery with EKG changes suggestive of ischemia and normal myocardial perfusion imaging. A CTA of the coronary arteries was done on 03/11/2023 showing mild nonobstructive coronary artery disease. Informed her that there is no obvious cardiac cause for her symptom. She tells me that shortness of breath accompanies her chest pressure. She has never had a pulmonary evaluation. She is interested in a pulmonary function test which is reasonable to order. Plan to call her with results. If abnormal then will refer her to pulmonology. If normal then she can discuss other noncardiac causes for her discomfort with her PCP. Cardiology office visit as needed for now and 1 year for her CAD. Emergency care if ever needed for symptoms. Continue daily aspirin, high-dose rosuvastatin. (2) Abnormal stress electrocardiogram test using treadmill: Code(s): R94.39 - Abnormal result of other cardiovascular function study (3) Coronary arteriosclerosis: Comment: Coronary CTA done 03/11/2023, left main mild calcification, less than 25% stenosis, lad 1st diagonal tiny, sizable 2nd diagonal with focal calcification at its origin, less than 25% stenosis, left circumflex small OM 1 and OM 2 branch is 1st OM [id number] calcification, less than 25% stenosis, 3rd OM patent, 4th OM small, RCA mild narrowing at the origin of the right coronary artery without definitive plaque, less than 25% stenosis, small hiatal hernia, patient informed Code(s): I25.10 - Atherosclerotic heart disease of [place] coronary artery without angina pectoris Orders: Orders PFT pulmonary function test Today R06.02 - Shortness of breath, R07.89 - Other chest pain Coding Level of Care Code Est Pt Level 3 (74371) Diagnoses Precordial chest pain R07.2 Abnormal stress electrocardiogram test using treadmill R94.39 Coronary arteriosclerosis I25.10 Time Spent (min) 24
== END 2023-03-17 14:35 | disposition home or self-care (01) ==
PROVIDERS: PCP Internal Medicine; Visit Provider Nurse Practitioner Family
DX: R07.2 Precordial pain (principal); R94.39 Abnormal result of other cardiovascular function study; I25.10 Atherosclerotic heart disease of native coronary artery without angina pectoris
CPT/HCPCS: 99213

== ENCOUNTER → 2023-03-17 13:54 | Outpatient (BNVA) | payer OTHER, MEDICAID, SELFPAY | PROVIDERS: PCP Internal Medicine; Visit Provider Nurse Practitioner Family | DX: R07.2 Precordial pain (principal); R94.39 Abnormal result of other cardiovascular function study; I25.10 Atherosclerotic heart disease of native coronary artery without angina pectoris; Z79.82 Long term (current) use of aspirin; Z79.899 Other long term (current) drug therapy | CPT/HCPCS: 99212 ==

== ENCOUNTER 2023-03-31 09:46 | Outpatient (AMB) | payer OTHER, MEDICAID, SELFPAY ==
[2023-03-31 10:14] VITALS: BP 108/62; PULSE 71; TEMP 36.3; O2SAT 99; BMI 22.6
--- NOTE | 2023-03-31 10:14 | MHC.OFFVIS ---
Intake Vital Signs 03/31/23 10:14 Height 5 ft 2 in Weight 123 lb 7.342 oz BMI 22.6 BP 108/62 Blood Pressure Location Rt brachial Position Sitting Pulse 71 Pulse Source Pulse Oximeter Temp 97.3 F Temp Source Skin Pulse Oximetry (%) 99 Intake Visit Reasons: OA/trigger finger Intake Note: Pt presents today for follow up. S/p trigger finger injection-provided temporary relief. 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 Patient stated that injection for left index trigger finger only provided 5 days relief. She continues to have pain in the left index flexor region. Recently she has been having right shoulder pain and limitation of movement. She denies any trauma to the shoulder. States that she received multiple should shoulder cortisone injections in the past, most recent injection was more than 6 months ago. States that injections usually provides relief. She was never referred for physical therapy for the shoulder pain Initial history: This is a 47-year-old female who presents for evaluation of left hand pain. In the past she would follow-up regularly with Dr. Russell. She would get right shoulder injections every 6 months or so. Today however she is here for pain in her left index finger. She has difficulty flexing her left index finger. She mentioned that she had a similar condition more than 8 months ago associated with triggering of the left index. She had a steroid injection by Dr. Day with good relief of her symptoms. [facility] Medical History Uterine cancer Elevated cholesterol Depression Surgical History H/O wrist surgery History of esophagogastroduodenoscopy (EGD) Hx of cystoscopy History of pubovaginal sling Hx of abdominoplasty History of surgery Hx of right breast biopsy Hx of breast reduction, elective Status post left foot surgery History of hysterectomy History of Family History Father Heart disease Mother Heart disease Social History Household Members: Children Alcohol intake: current Alcohol intake frequency: does not drink Patient Tobacco Use Status: Never used Tobacco Current occupational status: unemployed and other Current occupation: rt handed/homemaker Review of Systems Musc Reports arthralgias and Reports limited range of motion Physical Exam Vital Signs: Last Vital Signs Temp 97.3 F 03/31/23 10:14 Pulse 71 03/31/23 10:14 BP 108/62 03/31/23 10:14 Pulse Ox 99 03/31/23 10:14 BMI result Body Mass Index 22.6 Const General: cooperative, healthy appearing and comfortable Nutritional Appearance: average body habitus Orientation/consciousness: patient oriented x3 Limitations: no limitations HEENT Head: Yes normocephalic and Yes atraumatic Resp Effort & Inspection: normal respiratory effort and able to speak in complete sentences Neuro General: patient oriented x3 Extrem Other: Mild osteoarthritic changes of both hands without active synovitis Left 2nd MCP tenderness at the palmar side. Mild nodular thickening of her left 2nd flexor tendon. Reduced left index flexion Reduced range of motion of right shoulder in all directions. Positive empty can test on the right Office Procedures Joint Injection/Drain Joint Injection/Drain Primary Site: right shoulder Prep: site was prepped using sterile technique and ethochloride spray was applied Injected: 40 mg of, Kenalog and other (2 mL of 1% lidocaine) Approach Used: posterolateral Procedure: The patient tolerated the procedure well Coding Details: The right shoulder was prepped ChloraPrep and alcohol. The subacromial space was injected with 40 mg of triamcinolone and 1 cc of lidocaine. Patient tolerated the procedure well no apparent immediate side effects. 62856 - Large joint Procedure code (CPT) selection complete Assessment & Plan Assessment & Plan (1) Subacromial bursitis of right shoulder joint: Code(s): M75.51 - Bursitis of right shoulder Plan: Per patient she received multiple shoulder injections in the past. Most recent was more than 6 months. She denies ever going to PT for rotator cuff tendinopathy. Patient was requesting injection today. With patient's consent the right sub acromial bursa was injected in clinic today. Will get bilateral shoulder x-rays. (2) Trigger finger, left index finger: Code(s): M65.322 - Trigger finger, left index finger Plan: S/p trigger finger injection 2 months ago without relief. Referred patient to Hand surgery for further evaluation Plan I spent 15 minutes reviewing patient's chart, evaluating patient, counseling patient and documenting in the chart Orders: Orders XR shoulder LT min 2V Today M25.511 - Pain in right shoulder, M25.512 - Pain in left shoulder XR shoulder RT min 2V Today M25.511 - Pain in right shoulder, M25.512 - Pain in left shoulder AMB Joint Injection/Aspiration Today M19.011 - Primary osteoarthritis, right shoulder Referrals Hand Surgery Referral M65.322 - Trigger finger, left index finger Coding Level of Care Code Est Pt Level 3 (53191) Diagnoses Subacromial bursitis of right shoulder joint M75.51 Trigger finger, left index finger M65.322 CPT Codes Coding - 80069 Large joint: 05465 - Large joint ([id number])
== END 2023-03-31 10:42 | disposition home or self-care (01) ==
PROVIDERS: PCP Internal Medicine; Visit Provider Student in an Organized Health Care Education/Training Program
DX: M75.51 Bursitis of right shoulder (principal); M65.322 Trigger finger, left index finger
CPT/HCPCS: 20610; 99213

== ENCOUNTER → 2023-03-31 09:46 | Outpatient (BNVA) | payer OTHER, MEDICAID, SELFPAY | PROVIDERS: PCP Internal Medicine; Visit Provider Student in an Organized Health Care Education/Training Program | DX: M75.51 Bursitis of right shoulder (principal); M65.322 Trigger finger, left index finger | CPT/HCPCS: 20610; 99212 ==

== ENCOUNTER 2023-07-23 08:25 | Outpatient (REF) | payer OTHER, MEDICAID, SELFPAY ==
--- NOTE | ~2023-07-23 | XR_ITS ---
EXAMINATION: Bilateral shoulder x-ray CLINICAL INFORMATION: Pain COMPARISON: None. TECHNIQUE: 4 views each shoulder FINDINGS: Right: Bone alignment is normal. No fracture or dislocation. The glenohumeral joint is normal. There is mild arthritis at the acromioclavicular joint. Soft tissues are normal. Left: Bone alignment is normal. No fracture or dislocation. Joint spaces and soft tissues are normal. XR/XR shoulder RT min 2V IMPRESSION: Mild arthritis at the right acromioclavicular joint.
--- NOTE | ~2023-07-23 | XR_ITS ---
EXAMINATION: Bilateral shoulder x-ray CLINICAL INFORMATION: Pain COMPARISON: None. TECHNIQUE: 4 views each shoulder FINDINGS: Right: Bone alignment is normal. No fracture or dislocation. The glenohumeral joint is normal. There is mild arthritis at the acromioclavicular joint. Soft tissues are normal. Left: Bone alignment is normal. No fracture or dislocation. Joint spaces and soft tissues are normal. XR/XR shoulder LT min 2V IMPRESSION: Mild arthritis at the right acromioclavicular joint.
[2023-07-23 09:38] LABS: Anion Gap 11 (12-20); Blood Urea Nitrogen 13 mg/dL (9-16); Calcium 9.6 mg/dL (8.4-10.2); Carbon Dioxide 27 mmol/L (22-29); Chloride 104 mmol/L (96-108); Estimated Glomerular Filt Rate > 60; Glucose Random 100 mg/dL (60-115); Potassium 4.1 mmol/L (3.3-5.1); Sodium 138 mmol/L (135-145)
== END 2023-07-23 08:26 | disposition home or self-care (01) ==
LOC: HO.XRAY 08:25
PROVIDERS: Referring Provider Nurse Practitioner Family; Visit Provider Student in an Organized Health Care Education/Training Program
DX: R07.2 Precordial pain (principal); M25.511 Pain in right shoulder; M25.512 Pain in left shoulder
CPT/HCPCS: 36415; 73030; 80048

== ENCOUNTER 2023-07-27 08:27 | Outpatient (REF) | payer OTHER, MEDICAID, SELFPAY ==
[2023-07-27 08:48] LABS: MANUAL DIFF FLAG NO
[2023-07-27 09:17] LABS: Basophils Percent Auto 0.5 % (0-2); Eosinophils Absolute Auto 0.2 X10*3/uL (0.0-0.4); Eosinophils Percent Auto 1.9 % (0-4); Hematocrit 44.6 % (37.0-47.0); Hemoglobin 15.2 g/dl (12.0-16.0); Imm Gran Abs Auto 0.03 X10*3/uL (0.00-0.03); Imm Gran Pct Auto 0.4 % (0.0-0.4); Lymphocytes Absolute Auto 2.8 X10*3/uL (1.2-4.9); Lymphocytes Percent Auto 34.6 % (20-40); Mean Corpuscular HGB Conc 34.1 g/dl (31.0-35.0); Mean Corpuscular Hemoglobin 29.5 pg (27.0-33.0); Mean Corpuscular Volume 86.6 fL (80.0-98.0); Mean Platelet Volume 9.6 fL (9.4-12.3); Monocytes Absolute Auto 0.5 X10*3/uL (0.1-1.2); Monocytes Percent Auto 5.9 % (2-11); Neutrophils Absolute Auto 4.6 x10*3/uL (2.0-8.3); Neutrophils Percent Auto 56.7 % (45-73); Platelet Count 207 X10*3/uL (160-400); Red Blood Count 5.15 X10*6/uL (4.20-5.50); Red Cell Distribution Width 13.1 % (11.0-16.0)
[2023-07-27 10:15] LABS: Alanine Aminotransferase 21 U/L (0-31); Albumin Level 4.3 g/dL (3.5-5.0); Alkaline Phosphatase 107 U/L (39-117); Anion Gap 11 (12-20); Aspartate Amino Transferase 18 U/L (5-31); Bilirubin Total 0.4 mg/dL (0.0-1.0); Blood Urea Nitrogen 14 mg/dL (9-16); Calcium 9.5 mg/dL (8.4-10.2); Carbon Dioxide 27 mmol/L (22-29); Chloride 107 mmol/L (96-108); Cholesterol 201 mg/dL (<200); Estimated Glomerular Filt Rate > 60; Glucose Random 98 mg/dL (60-115); HDL Cholesterol 43 mg/dL (>40); LDL Cholesterol Calculated 98 mg/dL (<100); Potassium 4.2 mmol/L (3.3-5.1); Sodium 141 mmol/L (135-145); Triglycerides 303 mg/dL (<150)
== END 2023-07-27 08:28 | disposition home or self-care (01) ==
LOC: HO.LAB 08:27
PROVIDERS: PCP Internal Medicine; Visit Provider Internal Medicine
DX: E78.01 Familial hypercholesterolemia (principal); F31.9 Bipolar disorder, unspecified; I10 Essential (primary) hypertension; M65.322 Trigger finger, left index finger; Z87.81 Personal history of (healed) traumatic fracture
CPT/HCPCS: 36415; 80053; 80061; 85025; 99212

== ENCOUNTER 2023-07-27 08:52 | Outpatient (AMB) | payer OTHER, MEDICAID, SELFPAY ==
[2023-07-27 08:54] VITALS: BMI 22.5
--- NOTE | 2023-07-27 08:54 | MHC.OFFVIS ---
Intake Vital Signs 07/27/23 08:54 Height 5 ft 2 in Weight 123 lb BMI 22.5 Intake Visit Reasons: New Prob - Left index Trigger finger Intake Note: Fe is a 47 year old Right hand dominant female who presents as a new patient for a evaluation of her left index trigger finger. Patient reports that she has had carpal tunnel release, cortisone injections, and is using warm compress, massage, and ibuprofen with little relief. She states she has a hard time opening and griping things without pain. Allergies venlafaxine [From EFFEXOR] Allergy (Severe, Verified 07/27/23 08:59) SUICIDAL THOUGHTS Penicillins [PENICILLINS] Allergy (Intermediate, Verified 07/27/23 08:59) RASH HPI New Prob - Left index Trigger finger HPI Details 47-year-old female presents to the office today for her left index finger. She had an injury back in 2015 which resulted in ORIF of the left forearm. Subsequently she developed carpal tunnel syndrome in 2017/2018 and had a carpal tunnel release. She states this was helpful for a few months and then her numbness and tingling returned. She also had a cubital tunnel release in 2008. She states she continues to get some shooting pain in the left elbow. She e also developed some locking and catching of the left index finger after her carpal tunnel release. She has had injections in the past for the left index finger the most recent being March of 2022 which were not helpful. She has not had a brace of the left index finger. She has tried ibuprofen without relief. [facility] Medical History Uterine cancer Elevated cholesterol Depression Surgical History H/O wrist surgery History of esophagogastroduodenoscopy (EGD) Hx of cystoscopy History of pubovaginal sling Hx of abdominoplasty History of surgery Hx of right breast biopsy Hx of breast reduction, elective Status post left foot surgery History of hysterectomy History of Family History Father Heart disease Mother Heart disease Social History Household Members: Children Alcohol intake: current Alcohol intake frequency: does not drink Patient Tobacco Use Status: Never used Tobacco Current occupational status: unemployed and other Current occupation: rt handed/homemaker Review of Systems Const All systems reviewed & are unremarkable except as noted in HPI and below Physical Exam Vital Signs: BMI result Body Mass Index 22.5 Extrem Other: Surgical scars are present along the left forearm and left elbow. She also has a surgical scar in line with the radial styloid at the base of the 1st dorsal compartment. Full range of motion of all digits. There is tenderness at the base of the left index finger but no active catching or locking. She does have decreased sensation along the median nerve distribution of the left hand when compared to the contralateral side. Assessment & Plan Assessment & Plan (1) Trigger finger, left index finger: Code(s): M65.322 - Trigger finger, left index finger Plan At this time an EMG/nerve conduction study has been ordered of the left upper extremity to further evaluate the etiology of her numbness given she continues to have symptoms of carpal and cubital tunnel syndrome status post releases. I did give her a finger splint of the left index finger which she will use at night. I did explain once the EMG study results are back we can discuss further treatment options which could include revision carpal or cubital tunnel release with potential left index finger trigger release she is content with this plan we will follow up as discussed. Coding Level of Care Code New Pt Level 3 (27263) Diagnoses Trigger finger, left index finger M65.322
== END 2023-07-27 09:34 | disposition home or self-care (01) ==
PROVIDERS: PCP Internal Medicine; Visit Provider Physician Assistant
DX: M65.322 Trigger finger, left index finger (principal)
CPT/HCPCS: 99213

== ENCOUNTER 2023-08-18 13:35 | Outpatient (AMB) | payer OTHER, MEDICAID, SELFPAY ==
[2023-08-18 13:45] VITALS: BP 110/60; PULSE 85; TEMP 35.9; O2SAT 99; BMI 23.1
--- NOTE | 2023-08-18 13:45 | MHC.OFFVIS ---
Intake Vital Signs 08/18/23 13:45 Height 5 ft 2 in Weight 126 lb 1.671 oz BMI 23.1 BP 110/60 Blood Pressure Location Rt brachial Position Sitting Pulse 85 Pulse Source Pulse Oximeter Temp 96.7 F L Temp Source Skin Pulse Oximetry (%) 99 Oxygen Delivery Method Room Air Intake Visit Reasons: OA Intake Note: Pt last seen 03/31/23 presents today for follow up and xray results. Today she states her shoulder is still bothering her, she did get temporary relief from injection last visit. Upcoming EMG ordered by Ortho. Administrative Resident Required: No Accompanied by: Self / Same As Patient Allergies venlafaxine [From EFFEXOR] Allergy (Severe, Verified 08/18/23 13:52) SUICIDAL THOUGHTS Penicillins [PENICILLINS] Allergy (Intermediate, Verified 08/18/23 13:52) RASH HPI HPI Comments History of Present Illness Details 47-year-old female with generalized osteoarthritis returns for follow-up. She continues to have right shoulder pain and stiffness. She stated that the injection done last visit gave her one-month relief. The left index trigger finger injection done 01/2023 only gave her relief for 5 days. She was recently evaluated by orthopedics and an EMG/NCV was ordered for left upper extremity to evaluate for compression neuropathies. Initial history: This is a 47-year-old female who presents for evaluation of left hand pain. In the past she would follow-up regularly with Dr. Russell. She would get right shoulder injections every 6 months or so. Today however she is here for pain in her left index finger. She has difficulty flexing her left index finger. She mentioned that she had a similar condition more than 8 months ago associated with triggering of the left index. She had a steroid injection by Dr. Day with good relief of her symptoms. [facility] Medical History Uterine cancer Elevated cholesterol Depression Surgical History H/O wrist surgery History of esophagogastroduodenoscopy (EGD) Hx of cystoscopy History of pubovaginal sling Hx of abdominoplasty History of surgery Hx of right breast biopsy Hx of breast reduction, elective Status post left foot surgery History of hysterectomy History of Family History Father Heart disease Mother Heart disease Social History Household Members: Children Alcohol intake: current Alcohol intake frequency: does not drink Patient Tobacco Use Status: Never used Tobacco Current occupational status: unemployed and other Current occupation: rt handed/homemaker Review of Systems [facility] [place] Reports arthralgias and Reports limited range of motion Physical Exam Vital Signs: Last Vital Signs Temp 96.7 F L 08/18/23 13:45 Pulse 85 08/18/23 13:45 BP 110/60 08/18/23 13:45 Pulse Ox 99 08/18/23 13:45 Oxygen Delivery Method Room Air 08/18/23 13:45 BMI result Body Mass Index 23.1 Const General: cooperative, healthy appearing and comfortable Nutritional Appearance: average body habitus Orientation/consciousness: patient oriented x3 Limitations: no limitations HEENT Head: Yes normocephalic and Yes atraumatic Resp Effort & Inspection: normal respiratory effort and able to speak in complete sentences Neuro General: patient oriented x3 Extrem Other: Mild osteoarthritic changes of both hands without active synovitis Left 2nd MCP tenderness at the palmar side. Mild nodular thickening of her left 2nd flexor tendon. Reduced range of motion of right shoulder in all directions. Positive empty can test on the right Assessment & Plan Assessment & Plan (1) Subacromial bursitis of right shoulder joint: Code(s): M75.51 - Bursitis of right shoulder Plan: Per patient she received multiple shoulder injections in the past. Right shoulder was injected with Kenalog 03/2023 which only gave her 1 month relief. Right shoulder x-ray shows arthritis. Will refer patient to physical therapy. Advised patient to follow-up with orthopedics. (2) Trigger finger, left index finger: Code(s): M65.322 - Trigger finger, left index finger Plan: Follow-up with hand surgeon Plan I spent 15 minutes reviewing patient's chart, evaluating patient, counseling patient and documenting in the chart Orders: Orders PT Evaluation and Treatment Today M19.011 - Primary osteoarthritis, right shoulder, M75.51 - Bursitis of right shoulder Coding Level of Care Code Est Pt Level 3 (28010) Diagnoses Subacromial bursitis of right shoulder joint M75.51 Trigger finger, left index finger M65.322
== END 2023-08-18 14:05 | disposition home or self-care (01) ==
PROVIDERS: PCP Internal Medicine; Visit Provider Student in an Organized Health Care Education/Training Program
DX: M75.51 Bursitis of right shoulder (principal); M65.322 Trigger finger, left index finger
CPT/HCPCS: 99213

== ENCOUNTER → 2023-08-18 13:35 | Outpatient (BNVA) | payer OTHER, MEDICAID, SELFPAY | PROVIDERS: PCP Internal Medicine; Visit Provider Student in an Organized Health Care Education/Training Program | DX: M75.51 Bursitis of right shoulder (principal); M65.322 Trigger finger, left index finger | CPT/HCPCS: 99212 ==

== ENCOUNTER 2023-08-28 08:27 | Outpatient (REF) | payer OTHER, MEDICAID, SELFPAY ==
--- NOTE | 2023-08-28 08:30 | EMG_ITS ---
Chief complaint: Left wrist/palm pain and numbness History of wrist fracture status post internal fixation, Carpal Tunnel Syndrome and ulnar neuropathy at elbow surgery 2019. Reason for referral: Evaluate for recurrent Carpal Tunnel Syndrome Referred by: Kristel RAZA Procedure done: Left upper extremity NCS/EMG Precautions and/or limitations: None The limb temperature was monitored continuously and remained between 32-36 degrees C during the performance of the NCS. Ulnar motor NCS was performed with moderate elbow flexion between 70-90 degrees, with across-elbow distance of 10 cm. Nerve Conduction Studies Anti Sensory Summary Table ?Stim Site NR Onset (ms) Norm Onset (ms) Peak (ms) Norm Peak (ms) O-P Amp (?V) Norm O-P Amp Site1 Site2 Delta-0 (ms) Dist (cm) Roger (m/s) Norm Roger (m/s) Left Median Anti Sensory (2nd Digit) Wrist ? 2.7 3.5 <3.6 30.1 >10 Wrist 2nd Digit 2.7 14.0 52 Left Radial Anti Sensory (Thumb) Forearm ? 1.9 2.4 <3.1 45.3 Forearm Thumb 1.9 0.0 Left Ulnar Anti Sensory (5th Digit) Wrist ? 2.6 3.2 <3.7 46.5 >15.0 Wrist 5th Digit 2.6 14.0 54 Motor Summary Table ?Stim Site NR Onset (ms) Norm Onset (ms) O-P Amp (mV) Norm O-P Amp iAmp (mV) Amp (1st) (%) Site1 Site2 Delta-0 (ms) Dist (cm) Roger (m/s) Norm Roger (m/s) Left Median Motor (Abd Poll Brev) Wrist ? 3.4 <3.9 10.2 >4.5 12.4 100.0 Elbow Wrist 4.3 22.0 51 >45 Elbow ? 7.7 9.9 11.8 97.1 Left Ulnar Motor (Abd Dig Minimi) Wrist ? 2.9 <3.0 5.8 >5 6.9 100.0 B Elbow Wrist 3.1 17.0 55 >45 B Elbow ? 6.0 5.8 6.9 100.0 A Elbow B Elbow 1.7 10.0 59 >45 A Elbow ? 7.7 5.6 6.8 96.6 EMG ?Side Muscle Nerve Root Ins Act Fibs Psw Amp Dur Poly Recrt Int Pat Comment Left 1stDorInt Ulnar C8-T1 Nml Nml Nml Nml Nml 0 Nml Complete Left FlexCarRad Median C6-7 Nml Nml Nml Nml Nml 0 Nml Complete Left Biceps Musculocut C5-6 Nml Nml Nml Nml Nml 0 Nml Complete Left Triceps Radial C6-7-8 Nml Nml Nml Nml Nml 0 Nml Complete Left Deltoid Axillary C5-6 Nml Nml Nml Nml Nml 0 Nml Complete FINDINGS: All motor and sensory nerves tested showed normal latencies, amplitudes and conduction velocities. Concentric needle EMG was performed in selected muscles of the left upper extremity. Study revealed did not reveal signs of electric abnormalities as shown in the table below. IMPRESSION: 1. This is a normal study. 2. There is no electrodiagnostic evidence for median neuropathy, ulnar neuropathy, brachial plexopathy, or cervical radiculopathy. Thank you for your kind referral. Kizzy Silverman MD, OLIVIA Board Certified, [place] [employer] and Rehabilitation (ABPMR) Board Certified, [place] Board [employer] Electrodiagnostic Medicine (ABEM) CODIN [id number] MTDD
== END 2023-08-28 08:28 | disposition home or self-care (01) ==
LOC: HO.NEURO 08:27
PROVIDERS: PCP Internal Medicine; Visit Provider Physician Assistant
DX: R20.0 Anesthesia of skin (principal); R20.2 Paresthesia of skin
CPT/HCPCS: 95886; 95909

== ENCOUNTER → 2023-08-28 08:30 | Outpatient (BNV) | payer OTHER, MEDICAID, SELFPAY | PROVIDERS: PCP Internal Medicine; Visit Provider Physical Medicine & Rehabilitation | DX: M25.532 Pain in left wrist (principal); R20.2 Paresthesia of skin | CPT/HCPCS: 95886; 95909 ==

== ENCOUNTER 2023-09-11 08:34 | Outpatient (AMB) | payer OTHER, MEDICAID, SELFPAY ==
--- NOTE | 2023-09-11 08:34 | MHC.OFFVIS ---
Intake Vital Signs 09/11/23 08:35 Height 5 ft 2 in Weight 126 lb BMI 23.0 Intake Visit Reasons: tele- lt hand emg review Intake Note: Fe is a 47 year old female who presents today VIA Telephone for an EMG review of her left hand. Allergies venlafaxine [From EFFEXOR] Allergy (Severe, Verified 09/11/23 08:35) SUICIDAL THOUGHTS Penicillins [PENICILLINS] Allergy (Intermediate, Verified 09/11/23 08:35) RASH HPI tele- lt hand emg review HPI Details 47 yo female presents to telehealth EMG review left hand and elbow pain. She states she continues to experience n/t in the small finger which extends up into the forearm and elbow. She has done OT a while ago and states there was no relief. [facility] Medical History Uterine cancer Elevated cholesterol Depression Surgical History H/O wrist surgery History of esophagogastroduodenoscopy (EGD) Hx of cystoscopy History of pubovaginal sling Hx of abdominoplasty History of surgery Hx of right breast biopsy Hx of breast reduction, elective Status post left foot surgery History of hysterectomy History of Family History Father Heart disease Mother Heart disease Social History Household Members: Children Alcohol intake: current Alcohol intake frequency: does not drink Patient Tobacco Use Status: Never used Tobacco Current occupational status: unemployed and other Current occupation: rt handed/homemaker Review of Systems Const All systems reviewed & are unremarkable except as noted in HPI and below Physical Exam Vital Signs: BMI result Body Mass Index 23.0 Resp Effort & Inspection: normal respiratory effort and able to speak in complete sentences Results Reviewed Results Reviewed: EMG/NCS 08/28/23 IMPRESSION: 1. This is a normal study. 2. There is no electrodiagnostic evidence for median neuropathy, ulnar neuropathy, brachial plexopathy, or cervical radiculopathy. Assessment & Plan Assessment & Plan (1) Numbness of left hand: Code(s): R20.0 - Anesthesia of skin Plan: I explained the findings of her EMG and since she continues to experience n/t along with pain in the hand/ forearm and elbow I will refer her to Dr Cervantes to discuss further recommendations ie: surgery vs injection. She is content with this plan. Coding Level of Care Code Tele Est Pt Level 3 (37931) Diagnoses Numbness of left hand R20.0
[2023-09-11 08:35] VITALS: BMI 23.0
== END 2023-09-11 08:39 | disposition home or self-care (01) ==
LOC: HO.HOS 08:34
PROVIDERS: PCP Internal Medicine; Visit Provider Physician Assistant
DX: R20.0 Anesthesia of skin (principal)
CPT/HCPCS: 99213

== ENCOUNTER → 2023-09-11 08:34 | Outpatient (BNVA) | payer OTHER, MEDICAID, SELFPAY | PROVIDERS: PCP Internal Medicine; Visit Provider Physician Assistant ==

== ENCOUNTER 2023-12-30 13:42 | Outpatient (AMB) | payer OTHER, MEDICAID, SELFPAY ==
--- NOTE | 2023-12-30 13:44 | A.OFFVIS_ITS ---
Intake Visit Reasons: Interstim Post op concerns Intake Note: Patient is Present for Telephone Follow Up interstim concerns Urology Med: None Antibiotic Allergy: Penicillins Blood Thinner: None Lounge Car Attendant Required: No Allergies venlafaxine [From EFFEXOR] Allergy (Severe, Verified 12/30/23 13:45) SUICIDAL THOUGHTS Penicillins [PENICILLINS] Allergy (Intermediate, Verified 12/30/23 13:45) RASH HPI Comments Details: Fe is a pleasant female. She is a patient of . She is seen for the following urologic conditions - urinary urgency and frequency - urinary stress incontinence Telemedicine evaluation 15 minute consultation [facility] guillermo Video attempted Had fallen over Has questions about InterStim activity Imaging has been ordered Plain film to be taken Urinary stress incontinence Mid urethral sling placed 2018 Has been successful Still med has good control Urinary urgency and frequency InterStim device placed 2016 Has been functional She has questions about Current status Recommend interrogation with [employer] rep PFSH Medical History Uterine cancer Elevated cholesterol Depression Surgical History H/O wrist surgery History of esophagogastroduodenoscopy (EGD) Hx of cystoscopy History of pubovaginal sling Hx of abdominoplasty History of surgery Hx of right breast biopsy Hx of breast reduction, elective Status post left foot surgery History of hysterectomy History of Family History Father Heart disease Mother Heart disease Social History Household Members: Children Alcohol intake: current Alcohol intake frequency: does not drink Patient Tobacco Use Status: Never used Tobacco Current occupational status: unemployed and other Current occupation: rt handed/homemaker Review of Systems Const All systems reviewed & are unremarkable except as noted in HPI and below Reports no additional complaints Resp Reports no additional complaints GI Reports no additional complaints Reports as per HPI Musc Reports no additional complaints Physical Exam Telemedicine evaluation Appropriate responses Regular breathing rate and rhythm HEENT Head: Yes normal to inspection Ears: hearing grossly normal bilaterally Eyes General: appearance normal, both eyes and all related structures Neck Neck: Yes normal visual inspection Chest Chest palpation & inspection: normal inspection of the chest Resp Effort & Inspection: normal respiratory effort and able to speak in complete sentences Telehealth Telehealth Telehealth Platform: [facility] Location of provider rendering services: practice address Location of patient: address on file Patient Identification confirmed using: Name, : Yes Telehealth method: video Patient verbally consented to treatment: Yes Patient verbally consented to billing insurance company: Yes Patient informed of any privacy concerns related to visit: Yes Minutes spent on Phone/Video with Pt.: 15 Assessment & Plan Assessment & Plan (1) Urinary urgency: Code(s): R39.15 - Urgency of urination Category: Medical (2) Overactive bladder: Code(s): N32.81 - Overactive bladder Category: Medical Plan Follow-up after imaging Patient Instructions: Imaging studies, laboratory and physical exam results were discussed and reviewed in detail. No major barriers to patient understanding were identified. An opportunity to ask questions regarding the treatment plan was provided. All questions were answered. The patient expressed understanding and agreement with the above treatment plan. The patient is aware they should contact our office by phone for worsening of their current condition or the appearance of new urologic symptoms. Compliance is encouraged with any medications and followup testing that is ordered. It is a privilege to participate in the urologic care of your patient. If you have any questions or concerns regarding treatment for the above conditions, or other urologic issues, please do not hesitate to contact me. The office telephone contact is [phone]. This note is constructed using voice recognition software. While every effort has been made to ensure accuracy index editor errors may have been included. Yours sincerely, Dr Oli Cook MD, OLIVIA [facility] Providers of Expert, Compassionate Care for the Genitourinary System Coding Level of Care Code Tele Est Pt Level 3 (60584) Diagnoses Urinary urgency R39.15 Overactive bladder N32.81
== END 2023-12-30 14:29 | disposition home or self-care (01) ==
LOC: HO.HUSH 13:42
PROVIDERS: PCP Internal Medicine; Visit Provider Urology
DX: R39.15 Urgency of urination (principal); N32.81 Overactive bladder
CPT/HCPCS: 99213

== ENCOUNTER → 2023-12-30 13:42 | Outpatient (BNVA) | payer OTHER, MEDICAID, SELFPAY | PROVIDERS: PCP Internal Medicine; Visit Provider Urology ==

== ENCOUNTER 2024-01-18 08:25 | Outpatient (REF) | payer OTHER, MEDICAID, SELFPAY ==
[2024-01-18 10:46] LABS: MANUAL DIFF FLAG NO
[2024-01-18 10:51] LABS: Basophils Absolute Auto 0.1 X10*3/uL (0.0-0.2); Basophils Percent Auto 0.7 % (0-2); Eosinophils Absolute Auto 0.1 X10*3/uL (0.0-0.4); Eosinophils Percent Auto 1.5 % (0-4); Hematocrit 44.9 % (37.0-47.0); Hemoglobin 15.6 g/dl (12.0-16.0); Imm Gran Abs Auto 0.03 X10*3/uL (0.00-0.03); Imm Gran Pct Auto 0.4 % (0.0-0.4); Lymphocytes Absolute Auto 2.6 X10*3/uL (1.2-4.9); Lymphocytes Percent Auto 30.8 % (20-40); Mean Corpuscular HGB Conc 34.7 g/dl (31.0-35.0); Mean Corpuscular Hemoglobin 29.4 pg (27.0-33.0); Mean Corpuscular Volume 84.6 fL (80.0-98.0); Mean Platelet Volume 9.8 fL (9.4-12.3); Monocytes Absolute Auto 0.5 X10*3/uL (0.1-1.2); Monocytes Percent Auto 5.8 % (2-11); Neutrophils Absolute Auto 5.1 x10*3/uL (2.0-8.3); Neutrophils Percent Auto 60.8 % (45-73); Platelet Count 220 X10*3/uL (160-400); Red Blood Count 5.31 X10*6/uL (4.20-5.50); Red Cell Distribution Width 13.9 % (11.0-16.0); White Blood Count 8.4 X10*3/uL (4.8-10.8)
[2024-01-18 11:18] LABS: Alanine Aminotransferase 10 U/L (0-31); Albumin Level 4.4 g/dL (3.5-5.0); Alkaline Phosphatase 143 U/L (39-117); Anion Gap 11 (12-20); Aspartate Amino Transferase 16 U/L (5-31); Bilirubin Total 0.4 mg/dL (0.0-1.0); Blood Urea Nitrogen 18 mg/dL (9-16); Calcium 9.8 mg/dL (8.4-10.2); Carbon Dioxide 26 mmol/L (22-29); Chloride 106 mmol/L (96-108); Cholesterol 243 mg/dL (<200); Estimated Glomerular Filt Rate 57; Glucose Random 98 mg/dL (60-115); HDL Cholesterol 43 mg/dL (>40); LDL Cholesterol Calculated 153 mg/dL (<100); Potassium 4.1 mmol/L (3.3-5.1); Sodium 139 mmol/L (135-145); Total Protein 7.1 g/dL (6.5-8.0); Triglycerides 235 mg/dL (<150)
[2024-01-18 11:22] LABS: Thyroid Stimulating Hormone 1.01 uIU/mL (0.32-4.0); Valproate < 12.5 mcg/mL (50.0-100.0)
== END 2024-01-18 08:26 | disposition home or self-care (01) ==
LOC: HO.10HDL 08:25
PROVIDERS: Visit Provider Internal Medicine
DX: E78.2 Mixed hyperlipidemia (principal); F31.9 Bipolar disorder, unspecified; I10 Essential (primary) hypertension; Z68.23 Body mass index [BMI] 23.0-23.9, adult
CPT/HCPCS: 36415; 80053; 80061; 80164; 84443; 85025

== ENCOUNTER 2024-02-25 13:26 | Outpatient (AMB) | payer OTHER, MEDICAID, SELFPAY ==
--- NOTE | 2024-02-25 13:29 | MHC.OFFVIS ---
Vital Signs 02/25/24 13:35 Height 5 ft 2 in Weight 127 lb BMI 23.2 BP 101/55 L Blood Pressure Location Rt brachial Position Sitting Pulse 70 Intake Visit Reasons: Hernia Intake Note: This patient presents for Hernia assessment. Pt c/o; reports bulge, reports no changes in bowel habits, reports she had a previous hernia repair with mesh in [place] in 2008. [employer] Required: No Accompanied by: Other Relationship Allergies venlafaxine [From EFFEXOR] Allergy (Severe, Verified 02/25/24 13:36) SUICIDAL THOUGHTS Penicillins [PENICILLINS] Allergy (Intermediate, Verified 02/25/24 13:36) RASH Medication List - Last Reconciled 02/25/24 by Rhett Denny MD divalproex 500 mg PO BID fenofibrate 160 mg PO DAILY rosuvastatin 40 mg PO DAILY sertraline 100 mg PO DAILY zolpidem 10 mg PO BEDTIME PRN HPI HPI Hernia: Details: [age] year old female referred for a question of a left groin hernia. She says that she has felt this lump on the left groin for over a month. She says that this was much bigger when she noticed this. She says she was started on antibiotics and she had noticed that the lump strength significantly. However, she was worried about a hernia so she was referred to me. She had a history of a hernia repaired on the area of the umbilicus more than 10 years ago. She denies any pain on these lump on the groin. She denies any fever or chills. She denies any GI complaints. [facility] Medical History (Updated 02/25/24 @ 13:50 by Rhett Denny MD) Inguinal adenopathy Uterine cancer Elevated cholesterol Depression Surgical History H/O wrist surgery History of esophagogastroduodenoscopy (EGD) Hx of cystoscopy History of pubovaginal sling Hx of abdominoplasty History of surgery Hx of right breast biopsy Hx of breast reduction, elective Status post left foot surgery History of hysterectomy History of Family History Father Heart disease Mother Heart disease Social History Household Members: Children Alcohol intake: current Alcohol intake frequency: does not drink Patient Tobacco Use Status: Never used Tobacco Current occupational status: unemployed and other Current occupation: rt handed/homemaker Review of Systems Const Denies chills and Denies fever(s) Card Denies chest pain, Denies dyspnea and Denies dyspnea on exertion Resp Denies cough, Denies dyspnea and Denies dyspnea on exertion GI Denies hematochezia and Denies change in bowel habits Denies hematuria Musc Denies back pain and Denies limited range of motion Neuro Denies focal weakness and Denies convulsions Psych Denies depression and Denies mood swings Physical Exam Vital Signs: Last Vital Signs Pulse 70 02/25/24 13:35 BP 101/55 L 02/25/24 13:35 BMI result Body Mass Index 23.2 Const General: comfortable and no acute distress Orientation/consciousness: patient oriented x3 Neck Neck: Yes no lymphadenopathy Resp Auscultation: clear to auscultation bilaterally Cardio Rhythm: regular rhythm GI Palpation (GI): Soft to palpation, nontender and no guarding Other: Left groin distally is note of a removable well-defined mass, about 1 cm in size, nontender; otherwise no palpable hernia even with Valsalva Neuro General: patient oriented x3 Assessment & Plan Assessment & Plan (1) Inguinal adenopathy: Code(s): R59.0 - Localized enlarged lymph nodes Category: Medical Plan: She feels this mass on the left groin area and this actually feels more of a lymph node. This well-defined and mobile. This does not seem to be consistent with a left inguinal hernia This mass has been decreasing in size since she had been on antibiotics last month. I told her that we can continue to monitor this closely. I explained to her that I anticipate this to continue to decrease in size. Otherwise I can see her in the office in about a month and we can re-evaluate this. She is comfortable with the plan and understands this. Coding Level of Care Code New Pt Level 3 (19894) Diagnoses Inguinal adenopathy R59.0
[2024-02-25 13:35] VITALS: BP 101/55; PULSE 70; BMI 23.2
== END 2024-02-25 13:41 | disposition home or self-care (01) ==
PROVIDERS: PCP Internal Medicine; Visit Provider Surgery
DX: R59.0 Localized enlarged lymph nodes (principal)
CPT/HCPCS: 99203

== ENCOUNTER → 2024-02-25 13:26 | Outpatient (BNVA) | payer OTHER, MEDICAID, SELFPAY | PROVIDERS: PCP Internal Medicine; Visit Provider Surgery | DX: R59.0 Localized enlarged lymph nodes (principal) | CPT/HCPCS: 99202 ==

== ENCOUNTER 2024-03-17 11:42 | Outpatient (REF) | payer OTHER, MEDICAID, SELFPAY ==
--- NOTE | ~2024-03-17 | XR_ITS ---
EXAMINATION: XR ABDOMEN KUB 2 VIEWS CLINICAL INDICATION: Urgency of urination R39.15. COMPARISON: XR Kub 01/31/2020 TECHNIQUE: AP view of the abdomen. FINDINGS: The bowel gas pattern is normal with no evidence of ileus or obstruction. No unusual soft tissue calcifications are noted. The bones are unremarkable. Stimulator device noted with the distal tip overlying the right sacrum as before. IMPRESSION: Unremarkable examination. No change Electronically signed by: Matias Rahman MD 05/26/2024 11:30 AM LILLIE
[2024-03-17 12:56] LABS: Alanine Aminotransferase 22 U/L (0-31); Albumin Level 4.6 g/dL (3.5-5.0); Alkaline Phosphatase 129 U/L (39-117); Anion Gap 12 (12-20); Aspartate Amino Transferase 22 U/L (5-31); Bilirubin Total 0.6 mg/dL (0.0-1.0); Blood Urea Nitrogen 13 mg/dL (9-16); Carbon Dioxide 26 mmol/L (22-29); Chloride 105 mmol/L (96-108); Cholesterol 138 mg/dL (<200); Estimated Glomerular Filt Rate > 60; Glucose Random 94 mg/dL (60-115); HDL Cholesterol 46 mg/dL (>40); LDL Cholesterol Calculated 60 mg/dL (<100); Potassium 4.4 mmol/L (3.3-5.1); Sodium 139 mmol/L (135-145); Total Protein 7.2 g/dL (6.5-8.0); Triglycerides 161 mg/dL (<150)
== END 2024-03-17 11:43 | disposition home or self-care (01) ==
LOC: HO.LAB 11:42
PROVIDERS: Absent Provider Internal Medicine; PCP Internal Medicine; Visit Provider Urology
DX: Z00.01 Encounter for general adult medical examination with abnormal findings (principal); R39.15 Urgency of urination; N39.0 Urinary tract infection, site not specified; M45.9 Ankylosing spondylitis of unspecified sites in spine; E78.00 Pure hypercholesterolemia, unspecified; F33.9 Major depressive disorder, recurrent, unspecified; I10 Essential (primary) hypertension; Z12.72 Encounter for screening for malignant neoplasm of vagina
CPT/HCPCS: 36415; 72020; 74018; 80053; 80061; 93005; 99212

== ENCOUNTER 2024-03-17 12:41 | Outpatient (AMB) | payer OTHER, MEDICAID, SELFPAY ==
--- NOTE | 2024-03-17 13:02 | A.OFFVIS_ITS ---
Vital Signs 03/17/24 13:03 Height 5 ft 2 in Weight 129 lb 10.109 oz BMI 23.7 BP 90/62 Blood Pressure Location Lt brachial Position Sitting Pulse 65 Pulse Source Monitor Intake Visit Reasons: 1 yr f/up Hospital Pharmacy Technician Required: No Admission Nurse: Admission Nurse Present Allergies venlafaxine [From EFFEXOR] Allergy (Severe, Verified 03/17/24 13:04) SUICIDAL THOUGHTS Penicillins [PENICILLINS] Allergy (Intermediate, Verified 03/17/24 13:04) RASH Medication List - Last Reconciled 03/17/24 by More Mcguire NP-C aspirin 81 mg PO DAILY divalproex 500 mg PO BID fenofibrate 160 mg PO DAILY rosuvastatin 40 mg PO DAILY sertraline 100 mg PO DAILY zolpidem 10 mg PO BEDTIME PRN HPI HPI 1 yr f/up: Details: Fe is a 48-year-old female with past medical history of hyperlipidemia, nonobstructive coronary disease who presents for follow-up. Today she reports that she has not been getting chest pressure like she previously reported. She has no chest discomfort at rest or with activity. Her breathing is unlabored. No orthopnea or edema. She does cough periodically in the night. No daytime coughing. No heart palpitations, lightheadedness, presyncope, syncope. is present. [facility] Medical History Inguinal adenopathy Uterine cancer Elevated cholesterol Depression Surgical History H/O wrist surgery History of esophagogastroduodenoscopy (EGD) Hx of cystoscopy History of pubovaginal sling Hx of abdominoplasty History of surgery Hx of right breast biopsy Hx of breast reduction, elective Status post left foot surgery History of hysterectomy History of Family History Father Heart disease Mother Heart disease Social History Household Members: Children Alcohol intake: current Alcohol intake frequency: does not drink Patient Tobacco Use Status: Never used Tobacco Current occupational status: unemployed and other Current occupation: rt handed/homemaker Review of Systems Const All systems reviewed & are unremarkable except as noted in HPI and below ENT Denies dizziness Card Denies chest pain, Denies chest pain at rest, Denies chest pain with activity, Denies rapid heart rate, Denies pedal edema, Denies edema, Denies leg edema, Denies lightheadedness, Denies palpitations, Denies dyspnea, Denies dyspnea on exertion and Denies orthopnea Resp Reports cough (during night), Denies dyspnea and Denies dyspnea on exertion GI Denies hematochezia and Denies change in stool character Musc Denies abnormal gait, Denies limited range of motion, Denies muscle cramps, Denies muscle weakness, Denies numbness, Denies radiating pain into limb, Denies stiffness and Denies tingling Neuro Denies abnormal gait, Denies dizziness, Denies numbness and Denies tingling Endo Denies palpitations Physical Exam Vital Signs: Last Vital Signs Pulse 65 03/17/24 13:03 BP 90/62 03/17/24 13:03 BMI result Body Mass Index 23.7 Const General: cooperative, healthy appearing, comfortable and no acute distress Orientation/consciousness: patient oriented x3 Neck Neck: Yes normal visual inspection Resp Effort & Inspection: normal respiratory effort Auscultation: clear to auscultation bilaterally, no crackles, no rales, no rhonchi and no wheezes Cardio Jugular venous distension: no JVD Rate: regular rate Rhythm: regular rhythm Heart sounds: S1 normal heart sound present, S2 normal heart sound present, no murmurs and no rubs Neuro General: patient oriented x3 Extrem General: Yes normal to inspection and No no pedal edema Psych Appearance: grossly normal Mental Status: mental status grossly normal Speech and movement: Normal speech and movement present Office Procedures EKG Details: Today, read by me, normal sinus rhythm, nonspecific T-wave abnormality, rate 65, QTC 407 milliseconds [id number], Complete Assessment & Plan Assessment & Plan (1) Precordial chest pain: Code(s): R07.2 - Precordial pain Category: Medical Plan: Prior reports of exertional chest discomfort. She has cardiac risks of hyperlipidemia and family history of early CAD. A echocardiogram was done on 01/21/2022 showing EF 65%, mild TR, no regional wall motion abnormality. An exercise nuclear stress test done on 01/21/2022 showed good exercise capacity, mild shortness of breath with exercise, 3/10 chest pressure in recovery with EKG changes suggestive of ischemia and normal myocardial perfusion imaging. A CTA of the coronary arteries was done on 03/11/2023 showing mild nonobstructive coronary artery disease. Today she reports she has been doing well since her last visit 1 year ago. Her chest symptom overall has improved and resolved. She currently denies any exertional chest discomfort. Diagnosis of mild nonobstructive coronary disease reviewed with her. Signs and symptoms of angina discussed. Had continue aspirin indefinitely. Continue rosuvastatin with ideal LDL goal less than 70. Labs done today show LDL 60. Continue activity as tolerated. ED care if ever needed for concerning symptoms. Cardiology follow- up 1 year, sooner if needed. (2) Abnormal stress electrocardiogram test using treadmill: Code(s): R94.39 - Abnormal result of other cardiovascular function study Category: Medical Plan: As above. EKGs appear to be false-positive (3) Coronary arteriosclerosis: Comment: Coronary CTA done 03/11/2023, left main mild calcification, less than 25% stenosis, lad 1st diagonal tiny, sizable 2nd diagonal with focal calcification at its origin, less than 25% stenosis, left circumflex small OM 1 and OM 2 branch is 1st OM [id number] calcification, less than 25% stenosis, 3rd OM patent, 4th OM small, RCA mild narrowing at the origin of the right coronary artery without definitive plaque, less than 25% stenosis, small hiatal hernia, patient informed Code(s): I25.10 - Atherosclerotic heart disease of [place] coronary artery without angina pectoris Category: Medical Plan: As above. Continue risk factor modification Plan Time spent on chart review, documentation, interview and assessment Coding Level of Care Code Est Pt Level 3 (31682) Diagnoses Precordial chest pain R07.2 Abnormal stress electrocardiogram test using treadmill R94.39 Coronary arteriosclerosis I25.10 CPT Codes EKG - CPT: [id number], Complete ([id number]) Time Spent (min) 24
[2024-03-17 13:03] VITALS: BP 90/62; PULSE 65; BMI 23.7
== END 2024-03-17 13:26 | disposition home or self-care (01) ==
PROVIDERS: PCP Internal Medicine; Visit Provider Nurse Practitioner Family
DX: R07.2 Precordial pain (principal); R94.39 Abnormal result of other cardiovascular function study; I25.10 Atherosclerotic heart disease of native coronary artery without angina pectoris
CPT/HCPCS: 93010; 99213

== ENCOUNTER 2024-05-10 14:53 | Outpatient (AMB) | payer OTHER, MEDICAID, SELFPAY ==
--- NOTE | 2024-05-10 15:09 | MHC.OFFVIS ---
Intake Visit Reasons: interstim follow up/lymph node Intake Note: Patient is present for INTERSTRIM F/U [facility] Medication:NONE Antibiotic Allergy:PENICILLIN Blood Thinner:ASPIRIN Mannequin Decorator Required: No Allergies venlafaxine [From EFFEXOR] Allergy (Severe, Verified 05/10/24 15:10) SUICIDAL THOUGHTS Penicillins [PENICILLINS] Allergy (Intermediate, Verified 05/10/24 15:10) RASH HPI Comments Details: Fe is a pleasant female. She is a patient of . She is seen for the following urologic conditions - urinary urgency and frequency - urinary stress incontinence Follow-up from falling Imaging performed InterStim in good position with normal-appearing leads Had fallen over InterStim is working Pain on left groin Tender to exam No recalled history of twisting or turning Referral PT 1 year follow-up Urinary stress incontinence Mid urethral sling placed 2018 Has been successful Still med has good control Urinary urgency and frequency InterStim device placed 2015, updated generator 2022 with Bluetooth Has been functional She has questions about Current status Recommend interrogation with [employer] rep [facility] Medical History Inguinal adenopathy Uterine cancer Elevated cholesterol Depression Surgical History H/O wrist surgery History of esophagogastroduodenoscopy (EGD) Hx of cystoscopy History of pubovaginal sling Hx of abdominoplasty History of surgery Hx of right breast biopsy Hx of breast reduction, elective Status post left foot surgery History of hysterectomy History of Family History Father Heart disease Mother Heart disease Social History Household Members: Children Alcohol intake: current Alcohol intake frequency: does not drink Patient Tobacco Use Status: Never used Tobacco Current occupational status: unemployed and other Current occupation: rt handed/homemaker Review of Systems Const Denies chills and Denies fever(s) Card Reports no additional complaints and Denies syncope Resp Denies cough GI Denies abdominal pain and Denies heartburn Reports as per HPI and Denies change in libido Neuro Denies syncope Psych Denies change in libido Endo Denies change in libido Physical Exam Const General: cooperative, healthy appearing, comfortable and no acute distress Orientation/consciousness: patient oriented x3 HEENT Face and sinus: Yes normal facial exam Mouth: moist mucous membranes Neck Neck: Yes normal visual inspection, Yes full ROM and Yes trachea midline Chest Chest palpation & inspection: normal inspection of the chest Resp Effort & Inspection: normal respiratory effort, able to speak in complete sentences and no respiratory distress GI Inspection: Yes normal to inspection Back/Spine/Pelvis Cervical Spine: normal cervical lordosis Thoracic/Lumbar Spine: thoracic and lumbar spine normal to inspection Skin General skin exam: no rashes or lesions noted Neuro General: patient oriented x3, gait normal, tone normal and moves all extremities Extrem General: Yes normal to inspection and Yes capillary refill normal Assessment & Plan Assessment & Plan (1) Groin pain, chronic, left: Code(s): R10.32 - Left lower quadrant pain; G89.29 - Other chronic pain Category: Medical Plan Refer PT 12 month follow-up Orders: Orders AMB Urinalysis Automated Today Z13.9 - Encounter for screening, unspecified PT Evaluation and Treatment Today G89.29 - Other chronic pain, R10.2 - Pelvic and perineal pain, R10.32 - Left lower quadrant pain Patient Instructions: Imaging studies, laboratory and physical exam results were discussed and reviewed in detail. No major barriers to patient understanding were identified. An opportunity to ask questions regarding the treatment plan was provided. All questions were answered. The patient expressed understanding and agreement with the above treatment plan. The patient is aware they should contact our office by phone for worsening of their current condition or the appearance of new urologic symptoms. Compliance is encouraged with any medications and followup testing that is ordered. It is a privilege to participate in the urologic care of your patient. If you have any questions or concerns regarding treatment for the above conditions, or other urologic issues, please do not hesitate to contact me. The office telephone contact is [phone]. This note is constructed using voice recognition software. While every effort has been made to ensure accuracy optical laboratory manager errors may have been included. Yours sincerely, Dr Oli Cook MD, [facility] - Urology Providers of Expert, Compassionate Care for the Genitourinary System Coding Level of Care Code Est Pt Level 3 (47072) Diagnoses Groin pain, chronic, left R10.32; G89.29
== END 2024-05-10 15:36 | disposition home or self-care (01) ==
PROVIDERS: PCP Internal Medicine; Visit Provider Urology
DX: R10.32 Left lower quadrant pain (principal); G89.29 Other chronic pain; Z13.9 Encounter for screening, unspecified
CPT/HCPCS: 99213

== ENCOUNTER → 2024-05-10 14:53 | Outpatient (BNVA) | payer OTHER, MEDICAID, SELFPAY | PROVIDERS: PCP Internal Medicine; Visit Provider Urology | DX: N39.3 Stress incontinence (female) (male) (principal); R35.0 Frequency of micturition; R10.32 Left lower quadrant pain; G89.29 Other chronic pain; R10.2 Pelvic and perineal pain | CPT/HCPCS: 81003; 99212 ==